=== PATIENT | female | born 1995 | race Caucasian/White ===

== ENCOUNTER 2020-08-03 10:43 | Emergency (ER) | payer BC ==
[~2020-08-03] VITALS: Ht 167.6 cm; Wt 135.2 kg
[2020-08-03] MEDS ORDERED: DECADRON4 M1 PO (10:58)
[2020-08-03] MEDS ORDERED: TYLENOL # 31 EA PO (10:58)
[2020-08-03] MEDS ORDERED: AZITHROMYCIN250 MG PO (10:58)
[2020-08-03] MEDS ORDERED: ZOFRAN4 MG SL (11:00)
== END 2020-08-03 11:08 | disposition home or self-care (01) ==
LOC: ER 10:50
DX: U07.1 COVID-19 (principal); R06.00 Dyspnea, unspecified; R05 Cough
CPT/HCPCS: 99282; U0002

== ENCOUNTER 2024-06-27 08:10 | Emergency (ER) | payer BC ==
[~2024-06-27] VITALS: Ht 167.6 cm; Wt 135.2 kg
[~2024-06-27 08:10] MED LIST: AZITHROMYCIN250 MG PO; DECADRON4 M1 PO; TYLENOL # 31 EA PO; ZOFRAN4 MG SL
[2024-06-27 09:06] LABS: BASOPHILS % 0.3 % (0.0-1.0); EOSINOPHILS # (AUTO) 0.1 (0.0-0.4); EOSINOPHILS % 0.6 % (0.0-6.0); HEMATOCRIT 47.4 % (34.2-44.1); HEMOGLOBIN 15.5 g/dL (12.0-16.0); LYMPHOCYTES % 6.5 % (18.0-39.1); MEAN CORPUSCULAR HGB CONC 32.7 g/dL (31-35); MEAN CORPUSCULAR VOLUME 82.6 fL (81-99); MONOCYTES # (AUTO) 0.8 (0.2-0.8); MONOCYTES % 5.4 % (4.4-11.3); NEUTROPHILS % 86.7 % (38.7-80.0); PLATELET COUNT 274 x10e3/uL (140-360); RED BLOOD COUNT 5.74 x10e6/uL (3.6-5.1); WHITE BLOOD COUNT 14.95 x10e3/uL (4.8-10.8)
[2024-06-27] MEDS ORDERED: IOPAMIDOL 370 MG/ML 100 ML INFUS..BTL INJ ONE (09:31)
[2024-06-27] MEDS: FAMOTIDINE 20 MG/2 ML VIAL IV STA (09:35)
[2024-06-27] MEDS: ONDANSETRON HCL INJ 2MG/ML 2ML 2 MG/ML VIAL IV STA (09:35)
[2024-06-27] MEDS: SODIUM CHLORIDE 0.9% 1000ML 1,000 ML IV ONE (09:36)
[2024-06-27 09:37] VITALS: PULSE 92; RESP 16; TEMP 98.3; O2SAT 99
[2024-06-27 09:38] LABS: ALBUMIN 4.3 g/dL (3.5-5.0); ANION GAP 16.2 mmol/L (8-16); BILIRUBIN,TOTAL 0.6 mg/dL (0.2-1.2); CALCIUM 9.7 mg/dL (8.4-10.2); CREATININE, SERUM 0.93 mg/dL (0.57-1.11); POTASSIUM 4.2 mmol/L (3.5-5.1); TOTAL PROTEIN 8.4 g/dL (6.5-8.1)
[2024-06-27] MEDS ORDERED: ONDANSETRON ODT4 MG PO (11:45)
== END 2024-06-27 12:27 | disposition home or self-care (01) ==
LOC: ER 08:22
DX: R11.2 Nausea with vomiting, unspecified (principal); K52.9 Noninfective gastroenteritis and colitis, unspecified; R10.816 Epigastric abdominal tenderness; Z98.84 Bariatric surgery status
CPT/HCPCS: 36415; 74177; 80053; 81025; 83690; 85025; 96374; 96375; 99284; J2405; J7030; Q9967